=== PATIENT | female | born 1940 | race Caucasian/White ===

== ENCOUNTER 2020-01-16 14:41 | Inpatient (IN) | payer MEDICARE, OTHER ==
[~2020-01-16] VITALS: Ht 149.9 cm; Wt 74.6 kg
--- NOTE | 2020-01-16 14:56 | NUR ---
BIB [facility], PT WITH INCREASING BLE SWELLING, CELLULITIS. PT FROM [facility] BEING TREATED WITH ABX CURRENTLY
[2020-01-16] MEDS ORDERED: SODIUM CHLORIDE FLUSH 10ML SYR IVF ONE (16:00)
[2020-01-16 16:30] LABS: BASOPHILS % (AUTO) 0 % (0-1); EOSINOPHILS # (AUTO) 0.83 x10^3/uL (0-0.4); EOSINOPHILS % (AUTO) 12 % (1-7); LYMPHOCYTES # (AUTO) 1.29 x10^3/uL (1-3.4); LYMPHOCYTES % (AUTO) 19 % (22-44); MD NO; MEAN CORPUSCULAR HEMOGLOBIN 27.2 pg (27.0-34.8); MEAN CORPUSCULAR HGB CONC 32.1 g/dL (32.4-35.8); MEAN CORPUSCULAR VOLUME 84.9 fL (80-100); MONOCYTES # (AUTO) 0.37 x10^3/uL (0.2-0.8); MONOCYTES % (AUTO) 5 % (2-9); NEUTROPHILS # (AUTO) 4.47 x10^3/uL (1.8-6.8); NEUTROPHILS % (AUTO) 64 % (42-75); PLATELET COUNT 361 x10^3/uL (130-400); RED BLOOD COUNT 4.38 x10^6/uL (3.82-5.3); RED CELL DISTRIBUTION WIDTH 15.8 % (9.6-15.2)
[2020-01-16] MEDS ORDERED: PLEASE ENTER ALLERGIES MC SCH (16:30)
--- NOTE | 2020-01-16 16:40 | NUR ---
US AT IN RM AT THIS TIME
[2020-01-16 16:41] LABS: ALANINE AMINOTRANSFERASE 14 U/L (12-78); ALBUMIN 2.4 g/dL (3.4-5.0); ANION GAP 5 mmol/L (5-15); CALCIUM 8.6 mg/dL (8.5-10.1); CHLORIDE 107 mmol/L (98-107); CREATININE 0.92 mg/dL (0.55-1.02)
[2020-01-16 16:44] LABS: ALKALINE PHOSPHATASE 116 U/L (45-117); BILIRUBIN,TOTAL 0.2 mg/dL (0.2-1.0); TOTAL PROTEIN 7.7 g/dL (6.4-8.2)
[2020-01-16 17:33] LABS: HCT (SEDRATE) 37.2 % (34.6-47.8)
--- NOTE | 2020-01-16 17:44 | NUR ---
FAM MEMBER STATES PT HAS BEEN IN QUARINTINE AT [facility] FOR THE LAST TWO WEEKS, PT WITH NEGATIVE COVID TEST 01/02. Addendum: 01/16/20 at 1746 by COLEEN FAM MEMBER BEATRICE [phone], CALL IF PT DISCHARGED FOR RIDE
[2020-01-16] MEDS ORDERED: CIPR500T3 PO (18:46)
[2020-01-16] MEDS ORDERED: DICL1KIT14 TD (18:46)
[2020-01-16] MEDS ORDERED: GABA600T7 PO (18:46)
[2020-01-16] MEDS ORDERED: NICO1PAT31 TD (18:53)
[2020-01-16] MEDS ORDERED: CEPH-376 PO (18:53)
[2020-01-16] MEDS ORDERED: MAGN400O7 PO (18:53)
[2020-01-16] MEDS ORDERED: TRAZ50TA66 PO (18:53)
[2020-01-16] MEDS ORDERED: MULT-658 PO (18:53)
[2020-01-16] MEDS ORDERED: BISA10SU54 PR (18:53)
--- NOTE | 2020-01-16 19:00 | NUR ---
Received report from Julisa ROE.
--- NOTE | 2020-01-16 19:29 | NUR ---
Pt cleaned and fresh depends placed. Pt cleaned w/ soap and water, then towel dried. Pt placed into a clean gown and attached to vitals; bp and pulse ox. Pt provided a warm blanket. Skin assessment noted; BLE w/ flaking skin and erythemitous skin BLE from knee's to toe's. Pt w/ what appears to be superficial ulcerations w/ serous drainage.
[2020-01-16] MEDS ORDERED: METHOCARBAMOL 500 MG TABLET PO PRN (19:30)
[2020-01-16] MEDS ORDERED: GUAIFENESIN/DM 200-20MG, 10ML UDC PO PRN (19:30)
[2020-01-16] MEDS ORDERED: hydrALAzine 20 MG/ML, 1ML IVPush PRN (19:30)
[2020-01-16] MEDS ORDERED: KETOROLAC 30 MG/1 ML IV PRN (19:30)
[2020-01-16] MEDS ORDERED: ONDANSETRON 2MG/ML, 2ML IVPush PRN (19:30)
[2020-01-16] MEDS ORDERED: LACTATED RINGERS 1,000 ML IV SCH (19:30)
[2020-01-16] MEDS ORDERED: FAMOTIDINE 20 MG TABLET PO SCH (21:00)
[2020-01-16 21:02] VITALS: BP 113/68
[2020-01-16] MEDS: ENOXAPARIN 40 MG/0.4 ML SQ SCH (22:14)
[2020-01-16] MEDS: IBUPROFEN 600 MG TABLET PO PRN (22:14)
[2020-01-16] MEDS: TRAZODONE 50MG TABLET PO SCH (22:14)
[2020-01-16] MEDS: GABAPENTIN 300 MG CAPSULE PO SCH (22:14)
[2020-01-16] MEDS: CEFAZOLIN PMX 1GM/50ML 50 ML IV SCH (22:14)
[2020-01-16] MEDS: DICLOFENAC SODIUM HOMETP SCH (22:15)
[2020-01-16] MEDS ORDERED: IBUP-1223 PO (22:33)
[2020-01-17 01:22] VITALS: BP 146/82
[2020-01-17] MEDS: IBUPROFEN 600 MG TABLET PO PRN ×3 (05:39→20:16)
[2020-01-17] MEDS: CEFAZOLIN PMX 1GM/50ML 50 ML IV SCH ×3 (05:39→22:35)
[2020-01-17 06:56] LABS: BASOPHILS # (AUTO) 0.01 x10^3/uL (0-0.1); BASOPHILS % (AUTO) 0 % (0-1); EOSINOPHILS # (AUTO) 0.75 x10^3/uL (0-0.4); EOSINOPHILS % (AUTO) 11 % (1-7); LYMPHOCYTES # (AUTO) 1.63 x10^3/uL (1-3.4); LYMPHOCYTES % (AUTO) 25 % (22-44); MD NO; MEAN CORPUSCULAR HEMOGLOBIN 27.2 pg (27.0-34.8); MEAN CORPUSCULAR HGB CONC 31.9 g/dL (32.4-35.8); MEAN CORPUSCULAR VOLUME 85.4 fL (80-100); MEAN PLATELET VOLUME 6.1 fL (7.4-10.4); MONOCYTES # (AUTO) 0.41 x10^3/uL (0.2-0.8); MONOCYTES % (AUTO) 6 % (2-9); NEUTROPHILS # (AUTO) 3.78 x10^3/uL (1.8-6.8); NEUTROPHILS % (AUTO) 57 % (42-75); PLATELET COUNT 339 x10^3/uL (130-400); RED CELL DISTRIBUTION WIDTH 15.7 % (9.6-15.2)
[2020-01-17 07:08] LABS: ANION GAP 5 mmol/L (5-15); CALCIUM 8.3 mg/dL (8.5-10.1); CHLORIDE 108 mmol/L (98-107)
[2020-01-17 07:11] LABS: CREATININE 0.92 mg/dL (0.55-1.02)
[2020-01-17 07:41] VITALS: BP_SYST 139; BP_SYST 169; BP_DIAS 65; BP_DIAS 85
[2020-01-17] MEDS ORDERED: ACETAMINOPHEN 325 MG TABLET PO PRN (08:00)
[2020-01-17] MEDS ORDERED: POTASSIUM CHLORIDE 20 MEQ TAB.ER.PRT PO ONE (08:00)
[2020-01-17] MEDS ORDERED: MAGNESIUM HYDROXIDE 8%, 30ML UDC PO SCH (09:00)
[2020-01-17] MEDS: MULTIVITAMIN 1 TABLET PO SCH (09:00)
[2020-01-17] MEDS: DICLOFENAC SODIUM HOMETP SCH ×3 (09:00→20:16)
[2020-01-17] MEDS ORDERED: BISACODYL 10 MG SUPP PR SCH (09:00)
[2020-01-17] MEDS ORDERED: NICOTINE 14MG/24 HR PATCH.TD24 TD SCH (09:00)
[2020-01-17] MEDS: LACTOBACILLUS CHEW TABLET PO SCH ×3 (10:40→20:16)
[2020-01-17 15:55] VITALS: BP 104/67
[2020-01-17 18:42] VITALS: BP 118/64
[2020-01-17] MEDS: GABAPENTIN 300 MG CAPSULE PO SCH (20:16)
[2020-01-17] MEDS: TRAZODONE 50MG TABLET PO SCH (20:16)
[2020-01-18 02:23] VITALS: BP 118/69
[2020-01-18] MEDS: ENOXAPARIN 40 MG/0.4 ML SQ SCH ×2 (02:27→20:52)
[2020-01-18 05:47] LABS: CHLORIDE 109 mmol/L (98-107)
[2020-01-18 05:53] LABS: ANION GAP 7 mmol/L (5-15); CALCIUM 8.2 mg/dL (8.5-10.1); CREATININE 0.83 mg/dL (0.55-1.02)
[2020-01-18] MEDS: CEFAZOLIN PMX 1GM/50ML 50 ML IV SCH ×3 (06:37→23:26)
[2020-01-18 07:46] VITALS: BP 121/77
[2020-01-18] MEDS ORDERED: MAGNESIUM HYDROXIDE 8%, 30ML UDC PO PRN (08:00)
[2020-01-18] MEDS ORDERED: BISACODYL 10 MG SUPP PR PRN (08:00)
[2020-01-18] MEDS: DICLOFENAC SODIUM HOMETP SCH ×3 (09:00→20:47)
[2020-01-18] MEDS: MULTIVITAMIN 1 TABLET PO SCH (09:00)
[2020-01-18] MEDS: LACTOBACILLUS CHEW TABLET PO SCH ×3 (10:54→20:52)
[2020-01-18] MEDS: IBUPROFEN 600 MG TABLET PO PRN ×2 (11:50→19:36)
[2020-01-18 13:43] VITALS: BP 136/80
[2020-01-18 19:38] VITALS: BP 113/71
[2020-01-18] MEDS: GABAPENTIN 300 MG CAPSULE PO SCH (20:52)
[2020-01-18] MEDS: TRAZODONE 50MG TABLET PO SCH (20:52)
[2020-01-19 00:04] VITALS: BP 135/71
[2020-01-19 06:37] VITALS: BP 131/81
[2020-01-19] MEDS: CEFAZOLIN PMX 1GM/50ML 50 ML IV SCH (07:05)
[2020-01-19] MEDS ORDERED: CEFDINIR 300 MG CAPSULE PO SCH (09:00)
[2020-01-19] MEDS: DICLOFENAC SODIUM HOMETP SCH ×3 (09:00→20:08)
[2020-01-19] MEDS: MULTIVITAMIN 1 TABLET PO SCH (09:00)
[2020-01-19] MEDS: LACTOBACILLUS CHEW TABLET PO SCH ×3 (09:57→20:05)
[2020-01-19] MEDS: CEPHALEXIN 500 MG CAPSULE PO SCH ×3 (09:57→20:06)
[2020-01-19 12:15] VITALS: BP 145/76
[2020-01-19] MEDS: IBUPROFEN 600 MG TABLET PO PRN ×2 (12:20→20:06)
[2020-01-19 19:39] VITALS: BP 114/67
[2020-01-19] MEDS: ENOXAPARIN 40 MG/0.4 ML SQ SCH (20:06)
[2020-01-19] MEDS: TRAZODONE 50MG TABLET PO SCH (20:06)
[2020-01-19] MEDS: GABAPENTIN 300 MG CAPSULE PO SCH (20:06)
[2020-01-20 03:02] VITALS: BP 111/69
[2020-01-20] MEDS: CEPHALEXIN 500 MG CAPSULE PO SCH ×3 (06:14→17:05)
[2020-01-20] MEDS: IBUPROFEN 600 MG TABLET PO PRN ×2 (06:14→21:20)
[2020-01-20] MEDS: DICLOFENAC SODIUM HOMETP SCH ×3 (09:00→21:19)
[2020-01-20] MEDS: MULTIVITAMIN 1 TABLET PO SCH (09:00)
[2020-01-20] MEDS: LACTOBACILLUS CHEW TABLET PO SCH ×4 (10:14→21:20)
[2020-01-20 10:15] VITALS: BP 123/83
[2020-01-20 14:48] VITALS: BP 120/69
[2020-01-20 20:26] VITALS: BP 133/74
[2020-01-20] MEDS: GABAPENTIN 300 MG CAPSULE PO SCH (21:20)
[2020-01-20] MEDS: TRAZODONE 50MG TABLET PO SCH (21:20)
[2020-01-20] MEDS: ENOXAPARIN 40 MG/0.4 ML SQ SCH (21:20)
[2020-01-21] MEDS: CEPHALEXIN 500 MG CAPSULE PO SCH ×5 (00:02→23:51)
[2020-01-21 00:03] VITALS: BP 109/66
[2020-01-21 07:09] VITALS: BP 118/68
[2020-01-21] MEDS: MULTIVITAMIN 1 TABLET PO SCH (07:51)
[2020-01-21] MEDS: DICLOFENAC SODIUM HOMETP SCH ×3 (07:51→20:06)
[2020-01-21] MEDS: LACTOBACILLUS CHEW TABLET PO SCH ×3 (07:52→20:08)
[2020-01-21] MEDS ORDERED: IBUP-1222 PO (10:49)
[2020-01-21] MEDS ORDERED: ACID1TAB7 PO (10:49)
[2020-01-21 13:12] VITALS: BP 119/71
[2020-01-21] MEDS: GABAPENTIN 300 MG CAPSULE PO SCH (20:07)
[2020-01-21] MEDS: ENOXAPARIN 40 MG/0.4 ML SQ SCH (20:07)
[2020-01-21] MEDS: TRAZODONE 50MG TABLET PO SCH (20:08)
[2020-01-21 20:13] VITALS: BP 139/72
[2020-01-21] MEDS: IBUPROFEN 600 MG TABLET PO PRN (21:21)
[2020-01-22 01:31] VITALS: BP 108/62
[2020-01-22] MEDS: CEPHALEXIN 500 MG CAPSULE PO SCH ×3 (05:42→18:35)
[2020-01-22 07:47] VITALS: BP 112/72
[2020-01-22] MEDS: MULTIVITAMIN 1 TABLET PO SCH (08:09)
[2020-01-22] MEDS: DICLOFENAC SODIUM HOMETP SCH ×3 (08:09→20:32)
[2020-01-22] MEDS: LACTOBACILLUS CHEW TABLET PO SCH ×3 (08:10→20:33)
[2020-01-22] MEDS: IBUPROFEN 600 MG TABLET PO PRN (08:12)
[2020-01-22 14:36] VITALS: BP 126/74
[2020-01-22 19:27] VITALS: BP 126/74
[2020-01-22 20:25] VITALS: BP 118/64
[2020-01-22] MEDS: TRAZODONE 50MG TABLET PO SCH (20:32)
[2020-01-22] MEDS: ENOXAPARIN 40 MG/0.4 ML SQ SCH (20:33)
[2020-01-22] MEDS: GABAPENTIN 300 MG CAPSULE PO SCH (20:33)
[2020-01-23] MEDS: CEPHALEXIN 500 MG CAPSULE PO SCH ×4 (00:08→20:20)
[2020-01-23 00:11] VITALS: BP 115/58
[2020-01-23 08:35] VITALS: BP 122/64
[2020-01-23] MEDS: LACTOBACILLUS CHEW TABLET PO SCH (09:00)
[2020-01-23] MEDS: DICLOFENAC SODIUM HOMETP SCH ×3 (09:57→20:19)
[2020-01-23] MEDS: MULTIVITAMIN 1 TABLET PO SCH (09:58)
[2020-01-23] MEDS: IBUPROFEN 600 MG TABLET PO PRN (14:18)
[2020-01-23] MEDS: TERBINAFINE CRM 1%, 15GM TP SCH ×2 (16:00→20:20)
[2020-01-23] MEDS: TRAZODONE 50MG TABLET PO SCH (20:19)
[2020-01-23] MEDS: ENOXAPARIN 40 MG/0.4 ML SQ SCH (20:20)
[2020-01-23] MEDS: GABAPENTIN 300 MG CAPSULE PO SCH (20:20)
[2020-01-23 21:05] VITALS: BP 114/70
[2020-01-24 01:49] VITALS: BP 129/81
[2020-01-24] MEDS: CEPHALEXIN 500 MG CAPSULE PO SCH ×4 (02:06→20:46)
[2020-01-24] MEDS: TERBINAFINE CRM 1%, 15GM TP SCH ×4 (05:23→20:46)
[2020-01-24 05:57] LABS: CREATININE 0.84 mg/dL (0.55-1.02)
[2020-01-24] MEDS: DICLOFENAC SODIUM HOMETP SCH ×3 (07:21→20:07)
[2020-01-24] MEDS: LACTOBACILLUS CHEW TABLET PO SCH (08:27)
[2020-01-24] MEDS: MULTIVITAMIN 1 TABLET PO SCH (08:27)
[2020-01-24 08:57] VITALS: BP 112/67
[2020-01-24] MEDS: IBUPROFEN 600 MG TABLET PO PRN (12:50)
[2020-01-24 15:59] VITALS: BP 123/76
[2020-01-24 18:25] VITALS: BP 121/60
[2020-01-24] MEDS: TRAZODONE 50MG TABLET PO SCH (20:40)
[2020-01-24] MEDS: ENOXAPARIN 40 MG/0.4 ML SQ SCH (20:44)
[2020-01-24] MEDS: GABAPENTIN 300 MG CAPSULE PO SCH (20:46)
[2020-01-25] MEDS: CEPHALEXIN 500 MG CAPSULE PO SCH ×4 (02:12→20:52)
[2020-01-25] MEDS: TERBINAFINE CRM 1%, 15GM TP SCH ×4 (05:20→20:52)
[2020-01-25 07:56] VITALS: BP 119/72
[2020-01-25] MEDS: MULTIVITAMIN 1 TABLET PO SCH (08:51)
[2020-01-25] MEDS: IBUPROFEN 600 MG TABLET PO PRN (08:51)
[2020-01-25] MEDS: LACTOBACILLUS CHEW TABLET PO SCH (08:52)
[2020-01-25] MEDS: DICLOFENAC SODIUM HOMETP SCH ×3 (08:52→19:44)
[2020-01-25] MEDS: SENNA/DOCUSATE TABLET PO SCH (10:39)
[2020-01-25 14:49] VITALS: BP 104/65
[2020-01-25 19:20] VITALS: BP 113/61
[2020-01-25] MEDS: TRAZODONE 50MG TABLET PO SCH (20:52)
[2020-01-25] MEDS: GABAPENTIN 300 MG CAPSULE PO SCH (20:52)
[2020-01-25] MEDS: ENOXAPARIN 40 MG/0.4 ML SQ SCH (20:52)
[2020-01-26 00:59] VITALS: BP 121/70
[2020-01-26] MEDS: CEPHALEXIN 500 MG CAPSULE PO SCH ×4 (02:46→20:42)
[2020-01-26] MEDS: TERBINAFINE CRM 1%, 15GM TP SCH ×4 (05:06→20:42)
[2020-01-26] MEDS ORDERED: TRAZODONE 50MG TABLET PO PRN (07:30)
[2020-01-26 08:28] VITALS: BP 104/69
[2020-01-26] MEDS: DICLOFENAC SODIUM HOMETP SCH ×3 (08:35→21:00)
[2020-01-26] MEDS: LACTOBACILLUS CHEW TABLET PO SCH (08:35)
[2020-01-26] MEDS: SENNA/DOCUSATE TABLET PO SCH (08:35)
[2020-01-26] MEDS: MULTIVITAMIN 1 TABLET PO SCH (08:35)
[2020-01-26 13:12] VITALS: BP 114/73
[2020-01-26 20:04] VITALS: BP 127/73
[2020-01-26] MEDS: ENOXAPARIN 40 MG/0.4 ML SQ SCH ×2 (20:41→21:00)
[2020-01-26] MEDS: GABAPENTIN 300 MG CAPSULE PO SCH (20:42)
[2020-01-27 01:02] VITALS: BP 128/82
[2020-01-27] MEDS: CEPHALEXIN 500 MG CAPSULE PO SCH ×2 (02:37→08:49)
[2020-01-27] MEDS: TERBINAFINE CRM 1%, 15GM TP SCH ×4 (05:19→20:38)
[2020-01-27 05:46] LABS: BASOPHILS # (AUTO) 0.04 x10^3/uL (0-0.1); BASOPHILS % (AUTO) 1 % (0-1); EOSINOPHILS # (AUTO) 0.59 x10^3/uL (0-0.4); EOSINOPHILS % (AUTO) 8 % (1-7); LYMPHOCYTES # (AUTO) 1.54 x10^3/uL (1-3.4); LYMPHOCYTES % (AUTO) 21 % (22-44); MD NO; MEAN CORPUSCULAR HEMOGLOBIN 27.3 pg (27.0-34.8); MEAN CORPUSCULAR HGB CONC 32.1 g/dL (32.4-35.8); MEAN CORPUSCULAR VOLUME 84.8 fL (80-100); MEAN PLATELET VOLUME 6.1 fL (7.4-10.4); MONOCYTES % (AUTO) 6 % (2-9); NEUTROPHILS # (AUTO) 4.67 x10^3/uL (1.8-6.8); NEUTROPHILS % (AUTO) 65 % (42-75); PLATELET COUNT 446 x10^3/uL (130-400); RED BLOOD COUNT 4.47 x10^6/uL (3.82-5.3); RED CELL DISTRIBUTION WIDTH 15.3 % (9.6-15.2)
[2020-01-27 05:50] LABS: ANION GAP 5 mmol/L (5-15); CALCIUM 9.1 mg/dL (8.5-10.1); CHLORIDE 107 mmol/L (98-107)
[2020-01-27 08:39] VITALS: BP 112/71
[2020-01-27] MEDS: SENNA/DOCUSATE TABLET PO SCH (08:49)
[2020-01-27] MEDS: MULTIVITAMIN 1 TABLET PO SCH (08:49)
[2020-01-27] MEDS: LACTOBACILLUS CHEW TABLET PO SCH (08:49)
[2020-01-27] MEDS: IBUPROFEN 600 MG TABLET PO PRN (08:52)
[2020-01-27] MEDS: DICLOFENAC SODIUM HOMETP SCH ×3 (09:00→20:38)
[2020-01-27] MEDS: GABAPENTIN 300 MG CAPSULE PO SCH ×2 (10:42→20:38)
[2020-01-27 12:46] VITALS: BP 112/68
[2020-01-27 13:56] VITALS: BP 120/79
[2020-01-27 17:22] VITALS: BP 93/60
[2020-01-27 19:44] VITALS: BP 96/57
[2020-01-27] MEDS: ENOXAPARIN 40 MG/0.4 ML SQ SCH (20:38)
[2020-01-28 00:27] VITALS: BP 111/68
[2020-01-28] MEDS: TERBINAFINE CRM 1%, 15GM TP SCH ×4 (06:00→21:01)
[2020-01-28 07:17] VITALS: BP 115/72
[2020-01-28] MEDS: DICLOFENAC SODIUM HOMETP SCH ×3 (09:00→20:49)
[2020-01-28] MEDS: GABAPENTIN 300 MG CAPSULE PO SCH ×2 (10:53→20:49)
[2020-01-28] MEDS: MULTIVITAMIN 1 TABLET PO SCH (10:53)
[2020-01-28] MEDS: LACTOBACILLUS CHEW TABLET PO SCH (10:54)
[2020-01-28] MEDS: SENNA/DOCUSATE TABLET PO SCH (10:54)
[2020-01-28] MEDS: IBUPROFEN 600 MG TABLET PO PRN (11:03)
[2020-01-28 14:04] VITALS: BP 109/65
[2020-01-28 18:45] VITALS: BP 116/73
[2020-01-28] MEDS: ENOXAPARIN 40 MG/0.4 ML SQ SCH (20:49)
[2020-01-29 00:12] VITALS: BP 101/53
[2020-01-29] MEDS: TERBINAFINE CRM 1%, 15GM TP SCH ×4 (06:00→20:58)
[2020-01-29 07:05] VITALS: BP 99/59
[2020-01-29] MEDS: DICLOFENAC SODIUM HOMETP SCH ×3 (08:32→20:57)
[2020-01-29] MEDS: LACTOBACILLUS CHEW TABLET PO SCH (08:37)
[2020-01-29] MEDS: GABAPENTIN 300 MG CAPSULE PO SCH ×2 (08:37→20:58)
[2020-01-29] MEDS: SENNA/DOCUSATE TABLET PO SCH (08:37)
[2020-01-29] MEDS: IBUPROFEN 600 MG TABLET PO PRN (08:40)
[2020-01-29] MEDS: MULTIVITAMIN 1 TABLET PO SCH (08:41)
[2020-01-29 13:01] VITALS: BP 103/65
[2020-01-29 19:19] VITALS: BP 125/83
[2020-01-29] MEDS: ENOXAPARIN 40 MG/0.4 ML SQ SCH (20:58)
[2020-01-30 02:00] VITALS: BP 110/69
[2020-01-30] MEDS: TERBINAFINE CRM 1%, 15GM TP SCH ×4 (05:25→21:19)
[2020-01-30 07:58] VITALS: BP 118/74
[2020-01-30] MEDS: DICLOFENAC SODIUM HOMETP SCH ×3 (09:00→21:00)
[2020-01-30] MEDS: SENNA/DOCUSATE TABLET PO SCH (09:00)
[2020-01-30] MEDS: GABAPENTIN 300 MG CAPSULE PO SCH ×2 (10:01→21:18)
[2020-01-30] MEDS: LACTOBACILLUS CHEW TABLET PO SCH (10:01)
[2020-01-30] MEDS: MULTIVITAMIN 1 TABLET PO SCH (10:01)
[2020-01-30] MEDS: IBUPROFEN 600 MG TABLET PO PRN (10:04)
[2020-01-30 14:42] VITALS: BP 101/57
[2020-01-30 20:40] VITALS: BP 91/58
[2020-01-30] MEDS ORDERED: LIDODERM 5% PATCH TD SCH (21:00)
[2020-01-30] MEDS: ENOXAPARIN 40 MG/0.4 ML SQ SCH (21:00)
[2020-01-31 01:33] VITALS: BP 107/59
[2020-01-31] MEDS: TERBINAFINE CRM 1%, 15GM TP SCH ×4 (05:29→20:26)
[2020-01-31 07:03] VITALS: BP 139/87
[2020-01-31] MEDS: SENNA/DOCUSATE TABLET PO SCH (08:08)
[2020-01-31] MEDS: IBUPROFEN 600 MG TABLET PO PRN (08:08)
[2020-01-31] MEDS: LACTOBACILLUS CHEW TABLET PO SCH (08:09)
[2020-01-31] MEDS: GABAPENTIN 300 MG CAPSULE PO SCH ×2 (08:09→20:26)
[2020-01-31] MEDS: DICLOFENAC SODIUM HOMETP SCH ×3 (08:09→20:26)
[2020-01-31] MEDS: MULTIVITAMIN 1 TABLET PO SCH (08:09)
[2020-01-31] MEDS ORDERED: SENNA/DOCUSATE TABLET PO PRN (08:30)
[2020-01-31] MEDS ORDERED: LIDODERM REMOVE PATCH NOTE XX PRN (08:30)
[2020-01-31] MEDS ORDERED: LIDODERM 5% PATCH TD PRN (08:30)
[2020-01-31] MEDS ORDERED: LIDODERM REMOVE PATCH NOTE XX SCH (09:00)
[2020-01-31 13:27] VITALS: BP 116/73
[2020-01-31] MEDS: ENOXAPARIN 40 MG/0.4 ML SQ SCH (20:27)
[2020-01-31 20:50] VITALS: BP 119/68
[2020-02-01 02:17] VITALS: BP 104/61
[2020-02-01 05:11] LABS: CREATININE 0.78 mg/dL (0.55-1.02)
[2020-02-01] MEDS: TERBINAFINE CRM 1%, 15GM TP SCH ×4 (06:10→21:14)
[2020-02-01 07:14] VITALS: BP 110/54
[2020-02-01] MEDS: MULTIVITAMIN 1 TABLET PO SCH (08:55)
[2020-02-01] MEDS: LACTOBACILLUS CHEW TABLET PO SCH (08:55)
[2020-02-01] MEDS: GABAPENTIN 300 MG CAPSULE PO SCH ×2 (08:55→21:14)
[2020-02-01] MEDS: DICLOFENAC SODIUM HOMETP SCH ×3 (08:55→21:00)
[2020-02-01 13:39] VITALS: BP 116/59
[2020-02-01 20:53] VITALS: BP 119/73
[2020-02-01] MEDS: ENOXAPARIN 40 MG/0.4 ML SQ SCH (21:00)
[2020-02-02 05:08] VITALS: BP 116/68
[2020-02-02] MEDS: TERBINAFINE CRM 1%, 15GM TP SCH ×4 (05:10→21:14)
[2020-02-02] MEDS: GABAPENTIN 300 MG CAPSULE PO SCH ×2 (08:47→21:14)
[2020-02-02] MEDS: DICLOFENAC SODIUM HOMETP SCH ×3 (08:47→21:00)
[2020-02-02] MEDS: LACTOBACILLUS CHEW TABLET PO SCH (08:47)
[2020-02-02] MEDS: MULTIVITAMIN 1 TABLET PO SCH (08:47)
[2020-02-02 09:39] VITALS: BP 121/79
[2020-02-02 13:53] VITALS: BP 108/71
[2020-02-02 19:01] VITALS: BP 127/67
[2020-02-02] MEDS: ENOXAPARIN 40 MG/0.4 ML SQ SCH (21:00)
[2020-02-03 01:25] VITALS: BP 111/62
[2020-02-03] MEDS: TERBINAFINE CRM 1%, 15GM TP SCH ×4 (05:40→20:57)
[2020-02-03 07:30] VITALS: BP 126/75
[2020-02-03] MEDS: DICLOFENAC SODIUM HOMETP SCH ×3 (09:00→21:00)
[2020-02-03] MEDS: MULTIVITAMIN 1 TABLET PO SCH (09:11)
[2020-02-03] MEDS: GABAPENTIN 300 MG CAPSULE PO SCH ×2 (09:11→21:00)
[2020-02-03] MEDS: LACTOBACILLUS CHEW TABLET PO SCH (09:11)
[2020-02-03 14:45] VITALS: BP 112/72
[2020-02-03 19:08] VITALS: BP 119/50
[2020-02-03] MEDS: IBUPROFEN 600 MG TABLET PO PRN (20:57)
[2020-02-03] MEDS: ENOXAPARIN 40 MG/0.4 ML SQ SCH (21:00)
[2020-02-04 02:36] VITALS: BP 133/72
[2020-02-04] MEDS: TERBINAFINE CRM 1%, 15GM TP SCH ×4 (05:55→21:23)
[2020-02-04 07:44] VITALS: BP 127/72
[2020-02-04 08:03] VITALS: BP 131/69
[2020-02-04] MEDS: GABAPENTIN 300 MG CAPSULE PO SCH ×3 (08:51→21:00)
[2020-02-04] MEDS: MULTIVITAMIN 1 TABLET PO SCH ×2 (08:51→08:53)
[2020-02-04] MEDS: LACTOBACILLUS CHEW TABLET PO SCH (08:51)
[2020-02-04] MEDS: IBUPROFEN 600 MG TABLET PO PRN (08:56)
[2020-02-04] MEDS: DICLOFENAC SODIUM HOMETP SCH ×3 (09:00→21:00)
[2020-02-04 14:54] VITALS: BP 119/71
--- NOTE | 2020-02-04 15:58 | NUR ---
Green sheet established Pt up to chair 3x day with nursing Addendum: 02/04/20 at 1559 by Praveen Zaman PT Amended: Links added.
[2020-02-04 19:24] VITALS: BP 123/77
[2020-02-04] MEDS: ENOXAPARIN 40 MG/0.4 ML SQ SCH (21:00)
[2020-02-05 01:43] VITALS: BP 135/79
[2020-02-05] MEDS: TERBINAFINE CRM 1%, 15GM TP SCH ×4 (05:22→20:30)
[2020-02-05 07:52] VITALS: BP 118/73
[2020-02-05] MEDS: DICLOFENAC SODIUM HOMETP SCH ×3 (09:00→20:16)
[2020-02-05] MEDS: MULTIVITAMIN 1 TABLET PO SCH (09:00)
[2020-02-05] MEDS: GABAPENTIN 300 MG CAPSULE PO SCH ×2 (09:00→20:16)
[2020-02-05] MEDS: LACTOBACILLUS CHEW TABLET PO SCH (09:28)
[2020-02-05] MEDS: IBUPROFEN 600 MG TABLET PO PRN (09:52)
[2020-02-05 15:55] VITALS: BP 113/80
[2020-02-05 19:09] VITALS: BP 122/64
[2020-02-05] MEDS: ENOXAPARIN 40 MG/0.4 ML SQ SCH (20:16)
[2020-02-05] MEDS: SENNOSIDES 8.8 MG/5 ML ORAL SOL PO SCH (20:51)
[2020-02-06 00:15] VITALS: BP 115/75
[2020-02-06] MEDS: TERBINAFINE CRM 1%, 15GM TP SCH ×4 (05:07→22:07)
[2020-02-06] MEDS: DICLOFENAC SODIUM HOMETP SCH ×3 (07:42→21:00)
[2020-02-06] MEDS: MULTIVITAMIN 1 TABLET PO SCH (07:42)
[2020-02-06] MEDS: LACTOBACILLUS CHEW TABLET PO SCH (07:43)
[2020-02-06 07:51] VITALS: BP 124/80
[2020-02-06] MEDS: SENNOSIDES 8.8 MG/5 ML ORAL SOL PO SCH ×2 (09:00→22:07)
[2020-02-06] MEDS: GABAPENTIN 300 MG CAPSULE PO SCH ×2 (09:00→21:00)
[2020-02-06] MEDS: IBUPROFEN 600 MG TABLET PO PRN (10:04)
[2020-02-06 13:10] VITALS: BP 94/55
[2020-02-06 19:02] VITALS: BP 113/72
[2020-02-06] MEDS: ENOXAPARIN 40 MG/0.4 ML SQ SCH (21:00)
[2020-02-07 01:29] VITALS: BP 106/64
[2020-02-07] MEDS: TERBINAFINE CRM 1%, 15GM TP SCH ×4 (06:00→20:38)
[2020-02-07 07:05] LABS: CREATININE 0.94 mg/dL (0.55-1.02)
[2020-02-07] MEDS: GABAPENTIN 300 MG CAPSULE PO SCH ×2 (07:50→20:37)
[2020-02-07] MEDS: LACTOBACILLUS CHEW TABLET PO SCH (07:50)
[2020-02-07] MEDS: DICLOFENAC SODIUM HOMETP SCH ×3 (07:50→20:37)
[2020-02-07] MEDS: SENNOSIDES 8.8 MG/5 ML ORAL SOL PO SCH ×2 (07:51→20:37)
[2020-02-07] MEDS: MULTIVITAMIN 1 TABLET PO SCH (07:51)
[2020-02-07 07:57] VITALS: BP 115/75
[2020-02-07] MEDS: IBUPROFEN 600 MG TABLET PO PRN (12:52)
[2020-02-07 15:39] VITALS: BP 112/71
[2020-02-07 19:34] VITALS: BP 112/74
[2020-02-07] MEDS: ENOXAPARIN 40 MG/0.4 ML SQ SCH (20:38)
[2020-02-08 00:30] VITALS: BP 105/72
[2020-02-08] MEDS: TERBINAFINE CRM 1%, 15GM TP SCH ×4 (05:10→21:11)
[2020-02-08 07:45] VITALS: BP 119/71
[2020-02-08] MEDS: SENNOSIDES 8.8 MG/5 ML ORAL SOL PO SCH ×2 (09:00→21:00)
[2020-02-08] MEDS: GABAPENTIN 300 MG CAPSULE PO SCH ×2 (09:00→21:11)
[2020-02-08] MEDS: MULTIVITAMIN 1 TABLET PO SCH (09:00)
[2020-02-08] MEDS: DICLOFENAC SODIUM HOMETP SCH ×3 (09:00→21:00)
[2020-02-08] MEDS: LACTOBACILLUS CHEW TABLET PO SCH (09:00)
[2020-02-08 13:45] VITALS: BP 104/67
[2020-02-08] MEDS: IBUPROFEN 600 MG TABLET PO PRN (14:43)
[2020-02-08 19:21] VITALS: BP 123/70
[2020-02-08] MEDS: ENOXAPARIN 40 MG/0.4 ML SQ SCH (21:00)
[2020-02-09 00:02] VITALS: BP 117/76
[2020-02-09 08:03] VITALS: BP 129/80
[2020-02-09] MEDS: DICLOFENAC SODIUM HOMETP SCH ×3 (09:29→21:00)
[2020-02-09] MEDS: TERBINAFINE CRM 1%, 15GM TP SCH ×4 (09:29→22:46)
[2020-02-09] MEDS: MULTIVITAMIN 1 TABLET PO SCH (09:29)
[2020-02-09] MEDS: LACTOBACILLUS CHEW TABLET PO SCH (09:29)
[2020-02-09] MEDS: SENNOSIDES 8.8 MG/5 ML ORAL SOL PO SCH ×2 (09:30→21:00)
[2020-02-09] MEDS: GABAPENTIN 300 MG CAPSULE PO SCH ×2 (09:32→22:04)
[2020-02-09 13:55] VITALS: BP 108/68
[2020-02-09 19:39] VITALS: BP 112/72
[2020-02-09] MEDS: ENOXAPARIN 40 MG/0.4 ML SQ SCH (21:00)
[2020-02-10 01:23] VITALS: BP 114/70
[2020-02-10 07:48] VITALS: BP 102/63
[2020-02-10] MEDS: MULTIVITAMIN 1 TABLET PO SCH (08:59)
[2020-02-10] MEDS: GABAPENTIN 300 MG CAPSULE PO SCH ×2 (08:59→21:00)
[2020-02-10] MEDS: LACTOBACILLUS CHEW TABLET PO SCH (08:59)
[2020-02-10] MEDS: SENNOSIDES 8.8 MG/5 ML ORAL SOL PO SCH ×2 (09:00→21:00)
[2020-02-10] MEDS: DICLOFENAC SODIUM HOMETP SCH ×3 (09:00→21:00)
[2020-02-10] MEDS: TERBINAFINE CRM 1%, 15GM TP SCH ×4 (09:00→21:17)
[2020-02-10] MEDS: IBUPROFEN 600 MG TABLET PO PRN (10:31)
[2020-02-10 12:09] VITALS: BP 108/68
[2020-02-10 20:43] VITALS: BP 123/78
[2020-02-10] MEDS: ENOXAPARIN 40 MG/0.4 ML SQ SCH (21:00)
[2020-02-11 02:14] VITALS: BP 133/81
[2020-02-11] MEDS: TERBINAFINE CRM 1%, 15GM TP SCH ×3 (06:25→16:00)
[2020-02-11] MEDS: GABAPENTIN 300 MG CAPSULE PO SCH (07:31)
[2020-02-11] MEDS: LACTOBACILLUS CHEW TABLET PO SCH (07:31)
[2020-02-11] MEDS: MULTIVITAMIN 1 TABLET PO SCH (07:32)
[2020-02-11 08:09] VITALS: BP 117/72
[2020-02-11] MEDS: SENNOSIDES 8.8 MG/5 ML ORAL SOL PO SCH (09:00)
[2020-02-11] MEDS: DICLOFENAC SODIUM HOMETP SCH ×2 (09:00→16:00)
[2020-02-11] MEDS: IBUPROFEN 600 MG TABLET PO PRN (10:56)
[2020-02-11] MEDS ORDERED: TRAZ50TA66 PO (11:30)
[2020-02-11] MEDS ORDERED: GABA300C PO (11:30)
[2020-02-11] MEDS ORDERED: ACET325T26 PO (11:30)
[2020-02-11] MEDS ORDERED: ENOX40SY4 SQ (11:30)
[2020-02-11] MEDS ORDERED: LIDO700A20 TD (11:30)
[2020-02-11 13:54] VITALS: BP 129/76
== END 2020-02-11 16:38 | DRG 602 ==
LOC: ED 17:38 → EDIP 18:10 → 3N 20:47
PROVIDERS: ADMIT Internal Medicine; ATTEND Internal Medicine
DX: L03.115 Cellulitis of right lower limb (principal); R53.2 Functional quadriplegia; E43 Unspecified severe protein-calorie malnutrition; J96.01 Acute respiratory failure with hypoxia; J44.1 Chronic obstructive pulmonary disease with (acute) exacerbation; L97.909 Non-pressure chronic ulcer of unspecified part of unspecified lower leg with unspecified severity; L03.116 Cellulitis of left lower limb; E87.6 Hypokalemia; B35.1 Tinea unguium; E66.9 Obesity, unspecified; F17.200 Nicotine dependence, unspecified, uncomplicated; G47.00 Insomnia, unspecified; G47.33 Obstructive sleep apnea (adult) (pediatric); I10 Essential (primary) hypertension; G89.29 Other chronic pain; K59.00 Constipation, unspecified; M17.0 Bilateral primary osteoarthritis of knee; I87.2 Venous insufficiency (chronic) (peripheral); R53.81 Other malaise; G57.90 Unspecified mononeuropathy of unspecified lower limb; Z20.828 Contact with and (suspected) exposure to other viral communicable diseases; Z66 Do not resuscitate; Z82.49 Family history of ischemic heart disease and other diseases of the circulatory system; Z90.710 Acquired absence of both cervix and uterus; Z88.0 Allergy status to penicillin; Z88.5 Allergy status to narcotic agent; Z88.2 Allergy status to sulfonamides; Z88.8 Allergy status to other drugs, medicaments and biological substances
CPT/HCPCS: 36415; 71045; 80048; 80053; 82565; 82962; 83735; 85025; 85651; 87070; 87077; 87081; 87186; 87205; 87635; 93005; G0378; J0690; J1650; J7120